=== PATIENT | male | born 1950 | race Caucasian/White ===

== ENCOUNTER 2023-03-17 06:15 | Day surgery (SDC) | payer MEDICARE, OTHER ==
[2023-03-10 12:05] LABS: BASOPHILS # (AUTO) 0.1 X10'3 (0-0.2); BASOPHILS % (AUTO) 1.1 % (0-1); EOSINOPHILS # (AUTO) 0.1 X10'3 (0-0.9); LYMPHOCYTES # (AUTO) 1.6 X10'3 (1.1-4.8); LYMPHOCYTES % (AUTO) 22.6 % (21-51); MEAN CORPUSCULAR HGB CONC 32.2 g/dL (33.0-36.5); MEAN CORPUSCULAR VOLUME 96.4 FL (78-98); MEAN PLATELET VOLUME 7.3 FL (7.4-10.4); MONOCYTES # (AUTO) 0.9 X10'3 (0-0.9); MONOCYTES % (AUTO) 12.3 % (2-12); NEUTROPHILS # (AUTO) 4.4 X10'3 (1.8-7.7); PRE OP HEMATOCRIT 29.3 % (42.0-52.0); PRE OP PLATELET COUNT 242 X10'3 (140-440); RED BLOOD COUNT 3.04 X10'6 (4.70-6.10); RED CELL DISTRIBUTION WIDTH 17.9 % (11.5-14.5)
[2023-03-10 12:14] LABS: PRE OP HEMOGLOBIN 9.4 g/dL (14.0-17.9)
[2023-03-10 12:57] LABS: ALBUMIN 3.3 G/DL (3.4-5.0); ALBUMIN/GLOBULIN RATIO 1.1 (1.1-1.5); ALKALINE PHOSPHATASE 104 IU/L (46-116); BLOOD UREA NITROGEN 37 MG/DL (7-18); BUN/CREATININE RATIO 18.4 (10.0-20.0); CALCIUM 8.7 MG/DL (8.5-10.1); CHLORIDE 105 MMOL/L (99-107); CREATININE 2.01 MG/DL (0.60-1.10); PRE OP ALT 40 U/L (30-65); PRE OP ANION GAP 11 (8-16); PRE OP AST 32 U/L (10-37); PRE OP BILIRUB, TOTAL 0.4 MG/DL (0.0-1.0); PRE OP GLUCOSE 83 MG/DL (70-104); PRE OP POTASSIUM 4.4 MMOL/L (3.4-5.1); PRE OP SODIUM 143 MMOL/L (135-145); TOTAL CARBON DIOXIDE 26.9 MMOL/L (24-32); TOTAL PROTEIN 6.4 G/DL (6.4-8.2); eGFR 33 ML/MIN
[~2023-03-17] VITALS: Ht 188 cm; Wt 113.5 kg
[2023-03-17] VITALS (10 sets, daily range): BP systolic 125–196; BP diastolic 72–100
[~2023-03-17 06:15] MED LIST: APIX5TAB3 PO; DOXA2TAB92 PO; FOLI0.8C PO; GABA600T13 PO; GLYB5TAB7 PO; HYDR200T73 PO; INDA2.5T5 PO; LANTUS SQ; LOSA100T58 PO; METH2.5T55 PO; MODA200T48 PO; OXYB15TA19 PO; SULF500T59 PO; TRAM100T27 PO; cefazolin 2gm/D5W 100mL 100 ML IV ONE; famotidine 20mg tablet PO ONE; ringers solution, lacted 1,000 ML IV SCH
[2023-03-17] MEDS ORDERED: BUPIVAcaine/PF 2.5mg/ml (0.25%) 10ml vial ONE (06:46)
[2023-03-17] MEDS ORDERED: morphine 2 MG/ML inj. syringe IV PRN (07:35)
[2023-03-17] MEDS ORDERED: morphine 4 MG/ML inj SYRINge IV PRN (07:35)
[2023-03-17] MEDS ORDERED: ondansetron/PF 4mg/2ml inj IV PRN (07:35)
[2023-03-17] MEDS ORDERED: proCHLORperazine 10 MG/2 ml inj IV PRN (07:35)
[2023-03-17] MEDS ORDERED: ringers solution, lacted 1,000 ML IV SCH (07:35)
[2023-03-17] MEDS ORDERED: meperidine/PF 25mg/ml syringe IV PRN ×3 (07:35)
[2023-03-17] MEDS ORDERED: fentaNYL/PF 50MCG/1 ML 2ML syringe ONE (08:10)
[2023-03-17] MEDS ORDERED: midazolam 1 mg/ML 2ml injection ONE (08:11)
[2023-03-17] MEDS ORDERED: LIDOcaine 0.5% (5mg/ml) 50ml vial ONE (08:13)
--- NOTE | 2023-03-17 08:36 | NUR ---
Received from OR via [facility] TO RR 6, accompanied by Anesthesiologist DR ANDERSON and report given by Anesthesiolgist. PT PRESENTS WITH PIV 20G LEFT AC, RIGHT HAND DRESSING CDI, VSS. Addendum: 03/17/23 at 0855 by Mariela Rico RN, RN Amended: Links added.
--- NOTE | 2023-03-17 09:46 | NUR ---
ABLE TO SAFELY AMBULATE AND TRANSFER SELF. IV TAKEN OUT WITHOUT ANY COMPLICATIONS. ALL DISCHARGE INSTRUCTIONS COVERED WITH PATIENT AND ALL QUESTIONS ANSWERED. PATIENT TAKEN OUT VIA WHEELCHAIR TO PERSONAL VEHICLE WHERE FAMILY/FRIEND DROVE PATIENT HOME. Addendum: 03/17/23 at 1003 by Mariela Rico RN, RN Amended: Links added.
== END 2023-03-17 09:46 | disposition home or self-care (01) ==
LOC: PAS 06:15
PROVIDERS: ATTEND Orthopaedic Surgery Hand Surgery
DX: G56.01 Carpal tunnel syndrome, right upper limb (principal); E66.9 Obesity, unspecified; Z68.33 Body mass index [BMI] 33.0-33.9, adult; E11.22 Type 2 diabetes mellitus with diabetic chronic kidney disease; I12.9 Hypertensive chronic kidney disease with stage 1 through stage 4 chronic kidney disease, or unspecified chronic kidney disease; N18.2 Chronic kidney disease, stage 2 (mild); M19.032 Primary osteoarthritis, left wrist; M17.11 Unilateral primary osteoarthritis, right knee; N40.0 Benign prostatic hyperplasia without lower urinary tract symptoms; G47.30 Sleep apnea, unspecified; Z90.5 Acquired absence of kidney; Z96.653 Presence of artificial knee joint, bilateral; Z98.890 Other specified postprocedural states; Z86.718 Personal history of other venous thrombosis and embolism; Z85.528 Personal history of other malignant neoplasm of kidney; Z79.899 Other long term (current) drug therapy; Z79.01 Long term (current) use of anticoagulants; Z79.4 Long term (current) use of insulin
CPT/HCPCS: 36415; 64721; 80053; 85025; 93005; J0690; J2250; J2405; J3010; J3490; J7030; J7120; Z7506; Z7512; A4215

== ENCOUNTER 2023-04-14 10:21 | Outpatient (CLI) | payer MEDICARE, OTHER ==
[2023-04-10 11:31] LABS: BASOPHILS # (AUTO) 0.1 X10'3 (0-0.2); BASOPHILS % (AUTO) 0.8 % (0-1); EOSINOPHILS # (AUTO) 0.1 X10'3 (0-0.9); EOSINOPHILS % (AUTO) 0.9 % (0-6); LYMPHOCYTES # (AUTO) 1.1 X10'3 (1.1-4.8); LYMPHOCYTES % (AUTO) 14.6 % (21-51); MEAN CORPUSCULAR HEMOGLOBIN 28.9 PG (27.0-31.0); MEAN CORPUSCULAR HGB CONC 31.6 g/dL (33.0-36.5); MEAN CORPUSCULAR VOLUME 91.7 FL (78-98); MEAN PLATELET VOLUME 7.6 FL (7.4-10.4); MONOCYTES # (AUTO) 0.7 X10'3 (0-0.9); MONOCYTES % (AUTO) 9.5 % (2-12); NEUTROPHILS # (AUTO) 5.8 X10'3 (1.8-7.7); NEUTROPHILS % (AUTO) 74.2 % (42-75); PRE OP HEMATOCRIT 31.9 % (42.0-52.0); PRE OP PLATELET COUNT 223 X10'3 (140-440); PRE OP WHITE BLOOD COUNT 7.8 10'3 (4.8-10.8); RED BLOOD COUNT 3.48 X10'6 (4.70-6.10); RED CELL DISTRIBUTION WIDTH 19.4 % (11.5-14.5)
[2023-04-10 11:32] LABS: PRE OP HEMOGLOBIN 10.1 g/dL (14.0-17.9)
[2023-04-10 11:42] LABS: ALBUMIN 3.1 G/DL (3.4-5.0); ALKALINE PHOSPHATASE 113 IU/L (46-116); BLOOD UREA NITROGEN 26 MG/DL (7-18); BUN/CREATININE RATIO 15.1 (10.0-20.0); CALCIUM 8.9 MG/DL (8.5-10.1); CHLORIDE 103 MMOL/L (99-107); CREATININE 1.72 MG/DL (0.60-1.10); PRE OP ALT 27 U/L (30-65); PRE OP ANION GAP 6 (8-16); PRE OP AST 23 U/L (10-37); PRE OP BILIRUB, TOTAL 0.3 MG/DL (0.0-1.0); PRE OP POTASSIUM 4.3 MMOL/L (3.4-5.1); PRE OP SODIUM 138 MMOL/L (135-145); TOTAL PROTEIN 6.3 G/DL (6.4-8.2); eGFR 39 ML/MIN
[2023-04-10 11:44] LABS: PRE OP GLUCOSE 228 MG/DL (70-104)
[2023-04-10 12:04] LABS: ANISOCYTOSIS 2+; HYPOCHROMASIA 1+; PLATELET ESTIMATE NORMAL; POLYCHROMASIA FEW
[~2023-04-14 10:21] MED LIST changes: -cefazolin 2gm/D5W 100mL 100 ML IV ONE; -famotidine 20mg tablet PO ONE; -ringers solution, lacted 1,000 ML IV SCH
== END 2023-04-14 23:59 | disposition home or self-care (01) ==
LOC: LAB 10:21
PROVIDERS: ATTEND Orthopaedic Surgery Hand Surgery
DX: Z01.818 Encounter for other preprocedural examination (principal); G56.02 Carpal tunnel syndrome, left upper limb
CPT/HCPCS: 36415; 80053; 85025; J7120; 85008

== ENCOUNTER 2023-05-15 05:36 | Day surgery (SDC) | payer MEDICARE, OTHER ==
[2023-05-10 11:45] LABS: BASOPHILS # (AUTO) 0.1 X10'3 (0-0.2); BASOPHILS % (AUTO) 0.8 % (0-1); EOSINOPHILS # (AUTO) 0.1 X10'3 (0-0.9); LYMPHOCYTES # (AUTO) 1.2 X10'3 (1.1-4.8); LYMPHOCYTES % (AUTO) 13.2 % (21-51); MEAN CORPUSCULAR HEMOGLOBIN 28.1 PG (27.0-31.0); MEAN CORPUSCULAR HGB CONC 31.7 g/dL (33.0-36.5); MEAN CORPUSCULAR VOLUME 88.4 FL (78-98); MONOCYTES # (AUTO) 0.9 X10'3 (0-0.9); MONOCYTES % (AUTO) 10.7 % (2-12); NEUTROPHILS # (AUTO) 6.6 X10'3 (1.8-7.7); NEUTROPHILS % (AUTO) 74.3 % (42-75); PRE OP HEMATOCRIT 34.8 % (42.0-52.0); PRE OP PLATELET COUNT 202 X10'3 (140-440); PRE OP WHITE BLOOD COUNT 8.9 10'3 (4.8-10.8); RED BLOOD COUNT 3.94 X10'6 (4.70-6.10)
[2023-05-10 11:57] LABS: ALBUMIN/GLOBULIN RATIO 0.9 (1.1-1.5); ALKALINE PHOSPHATASE 126 IU/L (46-116); BLOOD UREA NITROGEN 30 MG/DL (7-18); BUN/CREATININE RATIO 16.9 (10.0-20.0); CALCIUM 8.9 MG/DL (8.5-10.1); CHLORIDE 102 MMOL/L (99-107); CREATININE 1.78 MG/DL (0.60-1.10); PRE OP ALT 32 U/L (30-65); PRE OP ANION GAP 9 (8-16); PRE OP AST 25 U/L (10-37); PRE OP BILIRUB, TOTAL 0.4 MG/DL (0.0-1.0); PRE OP POTASSIUM 4.3 MMOL/L (3.4-5.1); PRE OP SODIUM 137 MMOL/L (135-145); TOTAL CARBON DIOXIDE 26.5 MMOL/L (24-32); TOTAL PROTEIN 6.4 G/DL (6.4-8.2); eGFR 38 ML/MIN
[2023-05-10 12:01] LABS: PRE OP GLUCOSE 313 MG/DL (70-104)
[2023-05-10 14:32] LABS: ANISOCYTOSIS 2+; PLATELET ESTIMATE NORMAL; SPHEROCYTES FEW
[2023-05-15] VITALS (13 sets, daily range): BP systolic 120–187; BP diastolic 62–101; PULSE 65–83; RESP 12–18; TEMP 98.1; O2SAT 93–99
[~2023-05-15] VITALS: Ht 188 cm; Wt 115.1 kg
[~2023-05-15 05:36] MED LIST changes: +cefazolin 2gm/D5W 100mL 100 ML IV ONE; +famotidine 20mg tablet PO ONE; +ringers solution, lacted 1,000 ML IV SCH
[2023-05-15] MEDS ORDERED: BUPIVAcaine/PF 2.5mg/ml (0.25%) 10ml vial ONE (06:42)
[2023-05-15] MEDS ORDERED: LIDOcaine 0.5% (5mg/ml) 50ml vial ONE (07:54)
[2023-05-15] MEDS ORDERED: midazolam 1 mg/ML 2ml injection ONE (08:11)
[2023-05-15] MEDS ORDERED: fentaNYL/PF 50MCG/1 ML 2ML syringe ONE (08:11)
[2023-05-15] MEDS ORDERED: propofol 10mg/ml 20ml vial IV ONE (08:12)
--- NOTE | 2023-05-15 08:40 | NUR ---
Received from OR via [facility] TO RR 7, accompanied by Anesthesiologist DR FULLER and report given by Anesthesiolgist. PT PRESENTS ON 1L NC. INCREASED BP, MD ORDERED SOME LABETALOL PRN IF NEEDED. RE-POSITIONED CUFF AND WILL RE-EVAL BP. NO C/O PAIN OR NAUSEA FROM PATIENT AND NO S/S OF DISTRESS. APPLIED ICE TO LEFT WRIST AND ELEVATED LIMB. DRESSING CDI. WILL CONTINUE TO ASSESS.
[2023-05-15] MEDS ORDERED: ondansetron/PF 4mg/2ml inj IV PRN (08:45)
[2023-05-15] MEDS ORDERED: HYDROmorphone/PF 0.2 MG/ML SYRINGE IV PRN ×2 (08:45)
[2023-05-15] MEDS ORDERED: proCHLORperazine 10 MG/2 ml inj IV PRN (08:45)
[2023-05-15] MEDS ORDERED: morphine 2 MG/ML inj. syringe IV PRN (08:45)
[2023-05-15] MEDS ORDERED: labetalol 20mg/4ml (5mg/ml) syringe IV PRN (08:45)
[2023-05-15] MEDS ORDERED: morphine 4 MG/ML inj SYRINge IV PRN (08:45)
[2023-05-15] MEDS ORDERED: acetaminophen 1,000mg/100ml IV 100 ML IV PRN (08:45)
[2023-05-15] MEDS ORDERED: hydrALAZINE 20mg/ml inj. IV PRN (08:45)
[2023-05-15] MEDS ORDERED: meperidine/PF 25mg/ml syringe IV PRN (08:45)
[2023-05-15] MEDS ORDERED: ringers solution, lacted 1,000 ML IV SCH (08:45)
--- NOTE | 2023-05-15 09:00 | NUR ---
PT REFUSES ACCUCHECK POST OP. EDUCATED - PT VERBALIZED UNDERSTANDING AND WILL CHECK BLOOD SUGAR WHEN HE GETS HOME.
--- NOTE | 2023-05-15 09:40 | NUR ---
PT STABLE FOR D/C PER MD ORDERS. PATIENT A&OX4, DENIES PAIN, V/S WNL, SCD OFF, 20G TO R HAND D/C, LEFT WRIST DRESSING CDI. ICE AND ELEVATED LUE. I HAVE REVIEWED D/C INSTRUCTIONS WITH PATIENT AND THEY HAVE VERBALIZED UNDERSTANDING. ALL QUESTIONS, COMMENTS AND CONCERNS HAVE BEEN ANSWERED. REITERATED IMPORTANCE OF SLEEPING WITH CPAP TONIGHT D/Y SLEEP APNEA HX. PT WAS ABLE TO GET DRESSED AND TRANSFER TO W/C WITHOUT ASSISTANCE. PT WHEELED TO PRIVATE VEHICLE WHERE FRIEND WAS WAITING. ALL PERSONAL BELONGINGS SENT WITH PATIENT AND PATIENT TRANSFERRED INTO CAR WITHOUT INCIDENT.
== END 2023-05-15 09:40 | disposition home or self-care (01) ==
LOC: PAS 05:36
PROVIDERS: ATTEND Orthopaedic Surgery Hand Surgery
DX: G56.02 Carpal tunnel syndrome, left upper limb (principal); M19.032 Primary osteoarthritis, left wrist; G47.33 Obstructive sleep apnea (adult) (pediatric); E66.9 Obesity, unspecified; Z68.32 Body mass index [BMI] 32.0-32.9, adult; G89.29 Other chronic pain; N40.0 Benign prostatic hyperplasia without lower urinary tract symptoms; E11.22 Type 2 diabetes mellitus with diabetic chronic kidney disease; I12.9 Hypertensive chronic kidney disease with stage 1 through stage 4 chronic kidney disease, or unspecified chronic kidney disease; N18.30 Chronic kidney disease, stage 3 unspecified; Z79.899 Other long term (current) drug therapy; Z79.4 Long term (current) use of insulin; Z96.653 Presence of artificial knee joint, bilateral; Z85.528 Personal history of other malignant neoplasm of kidney; Z90.5 Acquired absence of kidney
CPT/HCPCS: 36415; 64721; 80053; 82948; 85025; J0690; J2250; J2704; J3010; J3490; J7030; J7120; Z7506; Z7512; 85008; A4215